=== PATIENT | female | born 1990 | race Caucasian/White ===

== ENCOUNTER 2017-11-12 18:07 | Emergency (ER) | payer OTHER ==
[~2017-11-12] VITALS: Ht 165.1 cm; Wt 74.4 kg
[~2017-11-12 18:07] MED LIST: ALPRAZOLAM0.5 MG PO; AMOXICILLIN500 M1 PO; ANTIVERT 25 MG25 MG PO; BLM PO; FIORICET 325 MG1 TAB PO; HYDROXYZINE50 MG PO; IBU600 MG PO; TESSALON PERLE100 M1 PO; TRAMADOL50 MG PO; ZITHROMAX500 M2 PO; ZOFRAN4 M1 SL
[2017-11-12 19:30] LABS: ABSOLUTE BASOPHIL COUNT 0 /CUMM (0.0-0.2); ABSOLUTE EOSINOPHIL COUNT 0.2 /CUMM (0.0-0.7); ABSOLUTE GRANULOCYTE CT 3.5 /CUMM (1.4-6.5); ABSOLUTE LYMPH COUNT 2.6 /CUMM (1.2-3.4); ABSOLUTE MONOCYTE COUNT 0.9 /CUMM (0.10-0.60); BASOPHIL % 0.6 % (0.0-2.0); GRANULOCYTE % 48.3 % (42.2-75.2); MEAN CORPUSCULAR HGB 30.4 PG (27.0-31.0); MEAN CORPUSCULAR HGB CONC 33.8 G/DL (33.0-37.0); MEAN CORPUSCULAR VOLUME 89.9 FL (81.0-99.0); MEAN PLATELET VOLUME 8.1 FL (7.4-10.4); PLATELET COUNT 270 /CUMM (130-400); RBC DISTRIBUTION WIDTH 12.6 % (11.5-14.5); RED BLOOD CELL CT 4.45 /CUMM (4.20-5.40); WHITE BLOOD CELL COUNT 7.2 /CUMM (4.8-10.8)
--- NOTE | 2017-11-12 19:44 | ED GI/GU/ABDOMINAL COMPLAINT ---
History of Present Illness General Chief Complaint: Nausea, Vomiting, Diarrhea Stated Complaint: DIARRHEA X 48 HRS Source: patient, old records Exam Limitations: no limitations Vital Signs & Intake/Output Vital Signs & Intake/Output Vital Signs Date Time Temp Pulse Resp B/P B/P Pulse O2 O2 Flow FiO2 Mean Ox Delivery Rate 11/12 1810 97.6 91 16 134/77 100 Room Air Allergies Coded Allergies: NO KNOWN ALLERGIES (08/24/15) Reconcile Medications Acetaminophen/Butalbital/Caf (Fioricet 325 MG-50 MG-40 MG) 1 TAB TAB 1-2 TAB PO Q6P PRN headache Azithromycin (Zithromax) 500 MG TABLET 1 TAB PO DAILY URI Benzonatate (Tessalon Perle) 100 MG CAPSULE 1 CAP PO TID PRN COUGH Ondansetron (Zofran Odt) 4 MG ODT 1 ODT SL Q6P PRN NAUSEA Triage Note: 27 Y/O FEMALE C/O DIARRHEA X 48 HOURS; WAS EVAL'D AT WALK IN AND TOLD TO TAKE PEPTO MISMOL BUT STATES IT DOESNT SEEM TO BE HELPING. DENIES N/V. DENIES PAIN. STATES SHE DOES HAVE APPETITE AND HAS BEEN EATING. WORKS IN [employer] SO CONCERNED ABOUT C.DIFF AFEBRILE Triage Nurses Notes Reviewed? yes LMP (ages 10-50): unknown ? n Is pt currently ? No Onset: 2 days Duration: day(s):, continues in ED, intermittent Timing: recent history Quality/Severity: cramping, mild Location: generalized abdomen Radiation: no radiation Activities at Onset: none Prior Abdominal Problems: none Past Sexual History: Unobtainable at this time Modifying Factors: Worsens With: eating. Associated Symptoms: abdominal pain, diarrhea HPI: 2 days prior to admission patient developed frequent loose watery stools with abdominal cramping. She denies fever chills nausea vomiting chest pain cough shortness breath headache dysuria rash bleeding recent antibiotic use or bad food intake. She works at a [employer] reports many patients with diarrhea. Past History Travel History Traveled to [place] past 21 day No Medical History Any Pertinent Medical History? see below for history Neurological: NONE EENT: NONE Cardiovascular: NONE Respiratory: NONE Gastrointestinal: NONE Hepatic: NONE Renal: NONE Musculoskeletal: NONE Psychiatric: anxiety Endocrine: NONE Blood Disorders: NONE Cancer(s): NONE CORN HUSK BALER/Reproductive: NONE Surgical History Surgical History: non-contributory, N Psychosocial History What is your primary language Indian Tobacco Use: Never used Family History Hx Contributory? No Review of Systems Review of Systems Constitutional: Reports: no symptoms. EENTM: Reports: no symptoms. Respiratory: Reports: no symptoms. Cardiovascular: Reports: no symptoms. GI: Reports: see HPI, abdominal pain, diarrhea. Genitourinary: Reports: no symptoms. Musculoskeletal: Reports: no symptoms. Skin: Reports: no symptoms. Neurological/Psychological: Reports: no symptoms. Hematologic/Endocrine: Reports: no symptoms. Immunologic/Allergic: Reports: no symptoms. All Other Systems: Reviewed and Negative Physical Exam Physical Exam General Appearance: well developed/nourished, alert, awake, anxious, mild distress Head: atraumatic, normal appearance Eyes: Bilateral: normal appearance, PERRL, EOMI, normal inspection. Ears, Nose, Throat, Mouth: hearing grossly normal, dry mucous membranes Neck: normal inspection, supple, full range of motion, normal alignment Respiratory: normal breath sounds, chest non-tender, no respiratory distress, quiet respiration, lungs clear Cardiovascular: regular rate/rhythm, normal peripheral pulses, norml femoral pulses equa Peripheral Pulses: 4+ carotid (R), 4+ carotid (L) Gastrointestinal: soft, non-tender, no organomegaly, abnormal bowel sounds Back: normal inspection, normal range of motion Extremities: normal range of motion, no ligament instability Neurologic/Psych: no motor/sensory deficits, awake, alert, oriented x 3, normal gait, normal mood/affect, physician/internist II-XII nml as tested Skin: intact, normal color, warm/dry Core Measures ACS in differential dx? No Sepsis Present: No Sepsis Focused Exam Completed? No Progress Differential Diagnosis: gastritis, pancreatitis, UTI/pyelo Plan of Care: Orders Procedure Date/time Status Add-on Test (ER Only) 11/12 1925 Active STOOL: R/O YERSINIA 11/12 1921 Active CULTURE,STOOL 11/13 1819 Active C.DIFFICILE 11/13 1819 Active URINE 11/13 1819 Complete URINALYSIS 11/13 1819 Complete COMPREHENSIVE METABOLIC PANEL 11/13 1819 Complete CBC WITHOUT DIFFERENTIAL 11/13 1819 Complete Laboratory Tests 11/12/17 2009: Urine Color YEL, Urine Clarity CLEAR, Urine pH 6.0, Ur Specific [place] >= 1.030 , Urine Protein NEG, Urine Ketones NEG, Urine Nitrite NEG, Urine Bilirubin NEG, Urine Urobilinogen 0.2, Ur Leukocyte Esterase NEG, Ur Microscopic EXAM NOT REQUIRED, Urine Hemoglobin NEG, Urine Glucose NEG, Urine Test NEGATIVE 11/12/171916: Anion Gap 14, Estimated GFR > 60, BUN/Creatinine Ratio 20.0, Glucose 88, Calcium 9.5, Total Bilirubin 0.3, AST 20, ALT 27, Alkaline Phosphatase 63, Total Protein 7.2, Albumin 4.4, Globulin 2.8, Albumin/Globulin Ratio 1.6, CBC w Diff NO MAN DIFF REQ, RBC 4.45, MCV 89.9, MCH 30.4, MCHC 33.8, RDW 12.6, MPV 8.1, Gran % 48.3, Lymphocytes % 35.6, Monocytes % 12.5 H, Eosinophils % 3.0, Basophils % 0.6, Absolute Granulocytes 3.5, Absolute Lymphocytes 2.6, Absolute Monocytes 0.9 H, Absolute Eosinophils 0.2, Absolute Basophils 0 Microbiology 11/12 1921 STOOL: Clostridium difficile Toxin A & B - RECD 11/12 1921 STOOL: Yersinia Culture - RECD 11/12 1921 STOOL: Stool Culture - RECD Initial ED EKG: none Departure Departure Time of Disposition: 2032 Disposition: HOME OR SELF CARE Condition: Stable Clinical Impression Primary Impression: Diarrhea Secondary Impressions: Dehydration Referrals: Nupur Shanks APRN (PCP/Family) Additional Instructions: Most of the stool studies will be completed by 1PM. If any are positive you will get a call. Departure Forms: Customer Survey General Discharge Information RELEASE- WORK Prescriptions: Current Visit Scripts Loperamide HCl (Imodium A-D) 0 PO SEE ADMIN CRITERIA PRN diarrhea #24 TAB 1 tab after each loose stool up to 7 per day Hyoscyamine Sulfate (Levsin-Sl) 1-2 TAB SL Q4P PRN abdominal cramps #30 TAB
[2017-11-12] MEDS ORDERED: IMODIUM A-D2 M1 PO (20:34)
[2017-11-12] MEDS ORDERED: LEVSIN-SL0.125 MG SL (20:34)
[2017-11-12 21:20] VITALS: BP 108/56
== END 2017-11-12 21:10 ==
LOC: ERH 18:07
PROVIDERS: Physician Assistant
DX: E86.0 Dehydration (principal)
CPT/HCPCS: 81003; 81025; 87045